=== PATIENT | male | born 1955 ===

== ENCOUNTER 2024-09-27 11:54 | Outpatient (CLI) | payer OTHER, SELFPAY ==
--- NOTE | 2024-09-27 12:01 | XRR_ITS ---
PROCEDURE INFORMATION: Exam: XR Chest Exam date and time: 09/27/2024 12:07 PM Age: 69 years old Clinical indication: Condition or disease; Lung condition and disease; Copd; Complications not specified; HX of prostate cancer; Additional info: Chronic obstructive pulmonary disease TECHNIQUE: Imaging protocol: Radiologic exam of the chest. Views: 2 views. COMPARISON: No relevant prior studies available. FINDINGS: Lungs: Unremarkable. No consolidation. Pleural spaces: No pneumothorax. Heart/Mediastinum: Unremarkable. No cardiomegaly. Bones/joints: Unremarkable. XR/XR chest 2V* [id number] IMPRESSION: No acute findings.
[2024-09-27 12:41] VITALS: PULSE 88; RESP 18; O2SAT 96
== END 2024-09-27 11:55 | disposition home or self-care (01) ==
PROVIDERS: Visit Provider Chiropractor
DX: J44.9 Chronic obstructive pulmonary disease, unspecified (principal)
CPT/HCPCS: 71046; 94060; J7613